=== PATIENT | female | born 1935 | race Caucasian/White ===

== ENCOUNTER 2017-01-21 14:14 | Inpatient (IN) | payer MEDICARE, OTHER ==
--- NOTE | ~2017-01-21 | HP ---
History And Physical [place] [id number] [place]. [address] NAME: STEPHEN RUBALCAVA : 33 STATUS : ADM IN [facility]#: [id number] AGE: 81 ADM/REG DATE : 01/21/17 MR#: [id number] REPORT SERV DATE: 01/21/17 DICTATED BY: MARCELLUS ANDERSON DATE: 01/21/17 REPORT STATUS : Draft TRANSCRIBED BY: AMRGUERITE DATE: 01/21/17 DATE OF ADMISSION: 01/21/2017 CHIEF COMPLAINT: Fever with acute hypoxia. HISTORY OF PRESENT ILLNESS: This is an 81-year-old female with a past medical history of multiple myeloma, status post 3 cycles of chemo, with Revlimid and steroid. She is a patient of Dr. Eloisa Feng. Was seen in clinic yesterday, found to have with severe neutropenia, reported white cell count of 0.4, and a platelet count of 37 yesterday. The patient returned to [facility]cology Clinic and seen by Dr. Edwards with acute hypoxia. The patient was given a dose of Lasix in clinic and found to have a fever of 100.9, and the patient was sent to the emergency department and seen by Dr. Landeros, a ER physician. Upon arrival, the patient was on a non-rebreather and since then has tapered up to 6 L of oxygen. She did require cefepime as well as some Ativan per ER physician. The patient states she has had chills and shortness of breath. No chest pain. No abdominal pain, but has suffered from diarrhea for several days. She has had generalized weakness. According to the family, the patient was noted to be dry yesterday and given some IV fluid in clinic yesterday, but however, with her developing acute onset of shortness of breath in clinic today, she was given a dose of Lasix in clinic. The patient is also on Eliquis for recent DVT diagnosed in November 2016. The patient states that she is compliant with her Eliquis and has not missed the dose and her last dose was this morning. Initially, upon arrival, the patient's blood pressure was 143/59. However, now blood pressure is 82/46. The patient is still responsive and follows commands. Has some mild tachycardia. Family, including son and granddaughter and [id number] are at bedside assisting with the patient's history. According to the family, the patient has had recent recurrent falls due to her generalized weakness. REVIEW OF SYSTEMS: Please refer to HPI. PAST MEDICAL HISTORY: Multiple myeloma, status post 3 cycles of chemo; history of fluid overload; DVT, on Eliquis, diagnosed in November 2016; hypertension; hyperlipidemia; neutropenia/pancytopenia; CKD. PAST SURGICAL HISTORY: Bone marrow biopsy, hip replacement x2, kyphoplasty, knee replacement. FAMILY HISTORY: Hypertension and coronary artery disease. SOCIAL HISTORY: No tobacco, alcohol, or illicit drugs. Lives at home alone. According to the family, the patient has refused to have assistance from family. ALLERGIES: NO KNOWN ALLERGIES. HOME MEDICATIONS: Please refer to Pharmacy. History And Physical [address] [address] NAME: STEPHEN RUBALCAVA : 33 STATUS : ADM IN [facility]#: [id number] AGE: 81 ADM/REG DATE : 01/21/17 MR#: [id number] REPORT SERV DATE: 01/21/17 DICTATED BY: MARCELLUS ANDERSON DATE: 01/21/17 REPORT STATUS : Draft TRANSCRIBED BY: MARGUERITE DATE: 01/21/17 PHYSICAL EXAMINATION: VITAL SIGNS: Temp in the ER 97.3, initial blood pressure was 143/59 and currently at 82/46, pulse 99, respiration initially at 36, now it is around 22 to 26, and O2 saturation 100% on 6 L currently. GENERAL: The patient is alert and oriented, but frail, mild lethargy. HEENT: Pupils equal, round, and reactive to light. Extraocular muscles are intact. Anicteric sclerae. Dry mucous membranes. CARDIOVASCULAR: S1, S2. No rubs or gallops. Positive mild tachycardia. RESPIRATORY: Clear to auscultation bilaterally. No wheezes or crackles. Positive mild tachypnea. ABDOMEN: Positive bowel sounds. Soft, nontender. No rebound. No fluid wave. No distention. Soft. EXTREMITIES: 1+ dorsalis pedis palpable. A trace of pedal edema. SKIN: Abrasion of the right knee from a recent fall and the toes of the right foot. NEUROLOGIC: Cranial nerves II through XII grossly intact. Moves all four extremities. No neuro focal deficits, but with generalized weakness. STUDIES: 1. Chest x-ray: No acute infiltrate. 2. EKG: Poor EKG, but appears to be sinus with no ST elevation. LABS: ABG with a pH of 7.39, pCO2 of 20, PO2 of 22, with FiO2 of 100. Procalcitonin of 4.09 with a sodium of 141, potassium 4.2, chloride 111, bicarb of 16, BUN of 35, with a creatinine of 1.83, glucose of 108. Albumin of 2.2 with a T bilirubin of 1.3, alkaline phosphatase of 127, ALT of 8, calcium of 5.7. BNP of 335. White count of 0.6 with a hemoglobin of 8.8 with a platelet count of 37,000. INR 3.5. UA; specific gravity 1.009, large amount of blood, only 3 red blood cells, 1 white blood cell, no nitrites, and no leukocyte esterase. ASSESSMENT AND PLAN: 1. Neutropenic fever. 2. Acute hypoxia. 3. Hypotension. 4. Multiple myeloma. 5. Underlying sepsis. 6. Recent deep venous thrombosis, on chronic Eliquis. 7. Chronic kidney disease. 8. The patient to be admitted to ICU. I have already spoken to the on-call ICU physician, Dr. Hiram Parada. He is currently evaluating the patient. We will start broad- spectrum antibiotics including cefepime. We will follow up with blood cultures. Also, we will check influenza swab. Also, we will recommend a V/Q scan when the patient's blood pressure is more stable. However, considering the patient is compliant with Eliquis, the likelihood of pulmonary embolism is low at this time, however, Critical Care to make further decisions. Also, we will check an echocardiogram. Also, Hematology Oncology with Dr. Eloisa Feng to be consulted. History And Physical [address] [place]. [address] NAME: STEPHEN RUBALCAVA : 31 STATUS : ADM IN [facility]#: [id number] AGE: 81 ADM/REG DATE : 01/21/17 MR#: [id number] REPORT SERV DATE: 01/21/17 DICTATED BY: MARCELLUS ANDERSON DATE: 01/21/17 REPORT STATUS : Draft TRANSCRIBED BY: MARGUERITE DATE: 01/21/17 [facility]/MARGUERITE Marcellus Anderson M.D. / [id number] CC: MD Eloisa Roa M.D.
--- NOTE | ~2017-01-21 | IDS ---
Interim Discharge Summary [facility] [address] [place]. [address] NAME: STEPHEN RUBALCAVA : 31 STATUS : ADM IN [facility]#: [id number] AGE: 81 ADM/REG DATE : 01/21/17 MR#: [id number] REPORT SERV DATE: 01/26/17 DICTATED BY: SINDI CHERY DATE: 01/26/17 REPORT STATUS : Draft TRANSCRIBED BY: MODL DATE: 01/26/17 ADMISSION DATE: 01/21/2017 DISCHARGE DATE: 01/26/2017 DATE OF ADMISSION TO ICU: 01/21/2017. DATE OF DISCHARGE: 01/26/2017. DISCHARGE DIAGNOSES: 1. Neutropenic fever. 2. Escherichia coli bacteremia. 3. Plasma cell myeloma. 4. Thrombocytopenia. 5. Atrial fibrillation with rapid ventricular response. 6. Acute kidney injury, resolving. 7. Recent deep venous thrombosis, on Eliquis. The patient was in the ICU, was treated with Zosyn and responded, remarkably improved. She had an episode of atrial fibrillation and was treated with amiodarone, switched to . Most recent labs show a sodium of 139, potassium 4.1, chloride 107, CO2 of 22, BUN 19, creatinine 1.2 which is improved, glucose is 62. H and H 8.4 and 24, white count 0.6, platelets 36,000. She is followed by Dr. Feng. We will move her to floor and continue amiodarone. Please see her medication list. She is awake, alert, and oriented. Vital signs are stable. Blood pressure is 116/51, pulse is 76, temperature is 98.3, and saturation is 100%. RP/MODL Sindi Chery M.D. / [id number] CC: Kenney Gordon Clay Alexander
--- NOTE | ~2017-01-21 | HP ---
History And Physical [place] [id number] [facility] [place]. [address] NAME: STEPHEN RUBALCAVA : 31 STATUS : ADM IN [facility]#: [id number] AGE: 81 ADM/REG DATE : 01/21/17 MR#: [id number] REPORT SERV DATE: 01/21/17 DICTATED BY: YANI PARADA DATE: 01/21/17 REPORT STATUS : Draft TRANSCRIBED BY: MODGina DATE: 01/21/17 DATE OF ADMISSION: 01/21/2017 REASON FOR ADMISSION: Neutropenic fever, hypotension. HISTORY OF PRESENT ILLNESS: Ms Rubalcava is an 81-year-old woman with smoldering plasma cell myeloma, on chronic therapy, on Velcade, Revlimid, and dexamethasone. She has been tolerating it fairly well, but was seen in the oncologist's office yesterday. Today, she has been neutropenic and was having more dyspnea and fatigue. She was brought to the emergency department today where she was found to be hypotensive, febrile, and still very neutropenic. She has not been started on aggressive volume resuscitation yet. PAST MEDICAL HISTORY: Significant for the myeloma. She also has had a recent episode of venous thromboembolism and has been on anticoagulation. SOCIAL HISTORY: Significant for no tobacco abuse and no alcohol abuse. REVIEW OF SYSTEMS: Review of 10 systems was performed with the family at the bedside and was positive for what was noted above. FAMILY HISTORY: Noncontributory in this 81-year-old woman. PHYSICAL EXAMINATION: GENERAL: She is awake and alert. VITAL SIGNS: Blood pressure is slightly low. HEENT: Normocephalic and atraumatic. NECK: Supple. No lymphadenopathy. No JVD. CHEST: Symmetric with good expansion bilaterally. LUNGS: Actually clear. CARDIOVASCULAR: She has S1 and S2, which are regular rate and rhythm. ABDOMEN: Benign. EXTREMITIES: She has no edema, no clubbing, no cyanosis. SKIN: She has some skin tenting and decreased turgor consistent with her dehydration. ASSESSMENT AND PLAN: Neutropenic fever. She has an absolute neutrophil count of 180. We have started her on broad-spectrum antibiotics and aggressive volume resuscitation. Unfortunately, she is at increased risk for morbidity and mortality because of the combination of her chronic hematologic malignancy, neutropenia, and her age. I have discussed advanced wishes with the family and they state very clearly they want her to be resuscitated if needed and put her on a ventilator if she has increased work of breathing. Her lactate is not elevated and her renal function is mildly elevated consistent with her dehydration with an elevated procalcitonin of 4.09. She will be admitted to the intensive care unit and monitored. We have discussed care with the emergency department staff and with the patient and her family. History And Physical [address] [address] NAME: STEPHEN RUBALCAVA : 31 STATUS : ADM IN PAT#: [id number] AGE: 81 ADM/REG DATE : 01/21/17 MR#: [id number] REPORT SERV DATE: 01/21/17 DICTATED BY: YANI PARADA DATE: 01/21/17 REPORT STATUS : Draft TRANSCRIBED BY: MARGUERITE DATE: 01/21/17 [facility]/MARGUERITE Yani Parada M.D. / [id number] CC: Jame Johnston MD
--- NOTE | ~2017-01-21 | DS ---
Discharge Summary [facility] [address] [place]. [address] NAME: STEPHEN RUBALCAVA : 31 STATUS : ADM IN PAT#: [id number] AGE: 81 ADM/REG DATE : 01/21/17 MR#: [id number] REPORT SERV DATE: 01/28/17 DICTATED BY: Surendra JUAREZ DATE: 01/28/17 REPORT STATUS : Draft TRANSCRIBED BY: MODL DATE: 01/28/17 ADMISSION DATE: 01/21/2017 DISCHARGE DATE: 01/28/2017 DIAGNOSES AT DISCHARGE: 1. Sepsis, present on admission, resolved. 2. Escherichia coli bacteremia, resolving. 3. Pancytopenia, resolving. 4. Multiple myeloma. 5. Atrial fibrillation with rapid ventricular rate, rate controlled. 6. Acute kidney injury, resolving. ACTIVE CONSULTS: [facility]. PROCEDURES: None. For details regarding earlier hospital stay, please see interim summary dictated by Dr. Vanegas on critical care dated 01/26/2017. HOSPITAL COURSE: Continuing on with hospital course 01/27/2017, the patient made remarkable recovery. Her pancytopenia is improving. Her kidney injury is resolving. She has remained afebrile. She has been transferred to [address] [place] [address] and been mobilized with physical therapy. The patient's physical therapy evaluation suggested a need for short-term rehabilitation at the halfway facility level. Her antibiotic had been downgraded to Duricef 1000 mg b.i.d., which she will complete ten total days of antimicrobial therapy. The patient was felt stable to transitioned to halfway on 01/28/2017. She has an outpatient followup with [facility] in one week. We will continue to hold Eliquis with plans to restart in one week at the date of 02/04/2017. She will complete her antimicrobial therapy after 01/30/2017. The patient will continue her other medications per med reconciliation form including oral amiodarone, which she will continue to our outpatient followup with Cardiology. Further recommendations for ongoing treatment pending outpatient followup with her primary care provider, [facility], and [facility]. As mentioned, she will be transitioned to halfway facility for ongoing rehabilitation. Of note, greater than 30 minutes was required to review medical record, reconcile discharge medications, counseling the patient regarding her antibiotic use and restarting date for her Eliquis. [facility]/MARGUERITE Surendra Juarez M.D. / [id number] Discharge Summary [address] [place]. [address] NAME: STEPHEN RUBALCAVA : 31 STATUS : ADM IN PAT#: [id number] AGE: 81 ADM/REG DATE : 01/21/17 MR#: [id number] REPORT SERV DATE: 01/28/17 DICTATED BY: Surendra JUAREZ DATE: 01/28/17 REPORT STATUS : Draft TRANSCRIBED BY: MARGUERITE DATE: 01/28/17 CC: Sj Vanegas M.D.
[2017-01-21 12:51] LABS: ALLENS TEST Pos; BE (BASE EXCESS) -11.5 MEQ/L (0 +/- 2.5); CARBOXYHEMOGLOBIN 1.4 % (0-3); HCO3 (ACTUAL BICARBONATE) 11.8 MEQ/L (23-27); HEMOBLOGIN CONTENT 9.4 G/DL (12-16); INSTRUMENT SERIAL # 8087; O2 CONTENT 13.6 VOL% (18-24); OPERATOR ID 14335; PCO2 (CO2 TENSION) 20 MMHG (35-45); PO2 (O2 TENSION) 226 MMHG (79-93); SAMPLE Arterial; pH 7.39 (7.37-7.43)
[2017-01-21 13:43] LABS: BASOPHILS 3.6 %; BASOPHILS ABSOLUTE 0.02 10/3/uL (0.0-0.16); EOSINOPHILS 39.3 %; EOSINOPHILS ABSOLUTE 0.22 10/3/uL (0.0-0.53); HEMOGLOBIN 8.8 g/dL (12.0-16.0); IMMATURE GRANULOCYTES 5.4 %; LYMPHOCYTES 19.6 %; LYMPHOCYTES ABSOLUTE 0.11 10/3/uL (0.67-4.30); MEAN CORPUS HGB CONC 34.1 g/dL (32.0-36.0); MEAN CORPUSCULAR HEMOGLOB 34.2 pg (26.0-34.0); MEAN CORPUSCULAR VOLUME 100.4 fL (80-100); MEAN PLATELET VOLUME 12.8 fL (9.2-13.0); MONOCYTES 0 %; NEUTROPHILS 32.1 %; NEUTROPHILS ABSOLUTE 0.18 10/3/uL (2.02-8.40); RBC DISTRIBUTION WIDTH 17.6 % (12.0-16.0); RED CELL COUNT 2.57 10/6/uL (4.0-5.6)
[2017-01-21 13:45] LABS: ER CBC TAT 0 Hrs 08 Mins; HEMATOCRIT 25.8 % (36.0-48.0); IMMATURE GRANULOCYTES ABSOLUTE 0.03 10/3/uL (0.0-0.11); MANUAL DIFF NO %; PLATELET COUNT 37 10/3/uL (150-400); WHITE BLOOD CELLS 0.6 10/3/uL (4.5-10.5)
[2017-01-21 13:52] LABS: INTERNATIONAL NORMAL RATI 3.5 UNITS (-); PARTIAL THROMBO TIME 43.9 SEC (22.5-37.2); PROTIME (NOT ORD) 35.2 SEC (12.0-14.5)
[2017-01-21 13:54] LABS: D-DIMER QUANTITATIVE 0.68 ug/mLFEU (< 0.50)
[2017-01-21 14:02] LABS: ANISOCYTOSIS 1+ (5-10/OIF) (0-5/OIF); BASOPHILS 3 %; BASOPHILS ABSOLUTE (CALC) 0.02 10/3/uL (0.0-0.16); CHLORIDE, SERUM 111 MMOL/L (96-112); CREATININE 1.83 MG/DL (0.55-1.02); EOSINOPHILS 40 %; EOSINOPHILS ABSOLUTE (CALC) 0.24 10/3/uL (0.0-0.53); ER DIFF TAT 0 Hrs 25 Mins; GFR AFRICAN AMERICAN 29 ML/MIN (>=60); GFR NON AFRICAN AMERICAN 25 ML/MIN (>=60); GLUCOSE, SERUM 108 MG/DL (60-99); LYMPHOCYTES 21 %; LYMPHOCYTES ABSOLUTE (CALC) 0.13 10/3/uL (0.67-4.30); MACROCYTES 1+ (5-10/OIF) (0-5/OIF); NEUTROPHILS ABSOLUTE (CALC) 0.22 10/3/uL (2.02-8.40); POTASSIUM, SERUM 4.2 MMOL/L (3.5-5.3); SEGMENTED NEUTROPHIL (0) 36 %; SGOT(AST) 11 U/L (5-40); SGPT(ALT) 8 U/L (5-65); SODIUM, SERUM 141 MMOL/L (135-148); TOTAL NUCLEATED CELLS 100
[2017-01-21 14:03] LABS: A/G RATIO 0.6 (0.7-1.9); ALBUMIN 2.2 G/DL (3.5-5.0); ALKALINE PHOSPHATASE 127 U/L (45-117); BUN (BLOOD UREA NITROGEN) 35 MG/DL (6-23); CALCIUM, SERUM 5.7 MG/DL (8.5-10.4); CO2 (CARBON DIOXIDE) 16 MMOL/L (24-34); GLOBULIN 3.6 G/DL (2.5-4.1); TOTAL BILIRUBIN 1.3 MG/DL (0-1.2); TOTAL PROTEIN 5.8 G/DL (6.0-8.5)
[~2017-01-21 14:14] MED LIST: COUMADIN4 MG; DSS PO; FESO4 PO; HYT2 PO; I10 PO; MEVACOR PO; MOTRIN IB200 MG PO; MULTIVITAMI1 PO; PCET PO; VESICARE5 PO
[2017-01-21 14:19] LABS: ASCORBIC ACID (UR NOT ORDER) NEG (NEG); BILIRUBIN, URINE NEGATIVE (NEG); ER URINALYSIS TAT 0 Hrs 13 Mins; KETONE, URINE NEGATIVE (NEG); LEUKOCYTE ESTERASE(NOT OR NEG (NEG); NITRITE (URINE) NEG (NEG); WBC (NOT ORDERED) (RFLEX) 1 (0-5)
[2017-01-21 15:01] LABS: PROCALCITONIN 4.09 ng/mL (<0.5)
[2017-01-21 15:46] LABS: INFLUENZA A SCREEN NEGATIVE (NEGATIVE); INFLUENZA B SCREEN NEGATIVE (NEGATIVE)
[2017-01-21] MEDS ORDERED: I10 PO (15:55)
[2017-01-21] MEDS ORDERED: ZOVIRAX400 MG PO (15:55)
[2017-01-21] MEDS ORDERED: DSS PO (15:55)
[2017-01-21] MEDS ORDERED: ELIQUIS 5 MG TAB5 MG PO (15:56)
[2017-01-21] MEDS ORDERED: MEVACOR PO (15:56)
[2017-01-21] MEDS ORDERED: [UNRECOGNIZED DRUG - OTHER] MT (15:57)
[2017-01-21] MEDS ORDERED: MELATONIN5 M1 PO (15:57)
[2017-01-21] MEDS ORDERED: DETROL2 PO (15:58)
[2017-01-21] MEDS ORDERED: ACET500CAP PO (15:58)
[2017-01-21] MEDS ORDERED: ATV.5 PO (15:58)
[2017-01-21 21:02] LABS: FREE T4 1.96 NG/DL (0.76-1.46); ULTRASENSITIVE TSH 0.693 MCIU/ML (0.358-3.740)
[2017-01-22 04:26] LABS: A/G RATIO 0.7 (0.7-1.9); ALBUMIN 1.9 G/DL (3.5-5.0); BUN (BLOOD UREA NITROGEN) 32 MG/DL (6-23); CHLORIDE, SERUM 111 MMOL/L (96-112); CO2 (CARBON DIOXIDE) 17 MMOL/L (24-34); CREATININE 1.48 MG/DL (0.55-1.02); GFR AFRICAN AMERICAN 38 ML/MIN (>=60); GFR NON AFRICAN AMERICAN 32 ML/MIN (>=60); GLOBULIN 2.9 G/DL (2.5-4.1); GLUCOSE, SERUM 116 MG/DL (60-99); PHOSPHORUS, SERUM 3.6 MG/DL (2.5-4.5); POTASSIUM, SERUM 4.2 MMOL/L (3.5-5.3); SGOT(AST) 10 U/L (5-40); SGPT(ALT) 7 U/L (5-65); SODIUM, SERUM 141 MMOL/L (135-148); TOTAL PROTEIN 4.8 G/DL (6.0-8.5)
[2017-01-22 04:33] LABS: ALKALINE PHOSPHATASE 84 U/L (45-117); TOTAL BILIRUBIN 0.5 MG/DL (0-1.2)
[2017-01-22 05:35] LABS: RBC DISTRIBUTION WIDTH 17.4 % (12.0-16.0); WHITE BLOOD CELLS 0.2 10/3/uL (4.5-10.5)
[2017-01-22 05:36] LABS: HEMATOCRIT 18.5 % (36.0-48.0); HEMOGLOBIN 6.1 g/dL (12.0-16.0); PLATELET COUNT 19 10/3/uL (150-400); RED CELL COUNT 1.85 10/6/uL (4.0-5.6)
[2017-01-22 05:37] LABS: MANUAL DIFF YES %
[2017-01-22 06:45] LABS: PROCALCITONIN 5.05 ng/mL (<0.5)
[2017-01-22 07:27] LABS: ANISOCYTOSIS 1+ (5-10/OIF) (0-5/OIF); BAND NEUTROPHILS 5 %; BASOPHILS 1 %; ELLIPTOCYTES 1+ (3-10/OIF) (0-2/OIF); EOSINOPHILS 32 %; EOSINOPHILS ABSOLUTE (CALC) 0.06 10/3/uL (0.0-0.53); LYMPHOCYTES 21 %; LYMPHOCYTES ABSOLUTE (CALC) 0.04 10/3/uL (0.67-4.30); MACROCYTES 1+ (5-10/OIF) (0-5/OIF); MONOCYTES 3 %; MONOCYTES ABSOLUTE (CALC) 0.01 10/3/uL (0.21-1.20); NEUTROPHILS ABSOLUTE (CALC) 0.09 10/3/uL (2.02-8.40); POLYCHROMASIA 1+ (2-5/OIF) (0-1/OIF); SEGMENTED NEUTROPHIL (0) 38 %; TEARDROP SHAPED RBCS OCC (0-2/OIF); TOTAL NUCLEATED CELLS 100
[2017-01-22 07:28] LABS: HELMET CELLS OCC (0-2/OIF); TOXIC GRANULATION SLT
[2017-01-22 18:53] LABS: BASOPHILS 0 %; EOSINOPHILS 32.1 %; EOSINOPHILS ABSOLUTE 0.09 10/3/uL (0.0-0.53); IMMATURE GRANULOCYTES 3.6 %; IMMATURE GRANULOCYTES ABSOLUTE 0.01 10/3/uL (0.0-0.11); LYMPHOCYTES 17.9 %; LYMPHOCYTES ABSOLUTE 0.05 10/3/uL (0.67-4.30); MEAN CORPUS HGB CONC 34.2 g/dL (32.0-36.0); MEAN CORPUSCULAR HEMOGLOB 33.3 pg (26.0-34.0); MEAN CORPUSCULAR VOLUME 97.4 fL (80-100); MEAN PLATELET VOLUME 10.3 fL (9.2-13.0); MONOCYTES 7.1 %; MONOCYTES ABSOLUTE 0.02 10/3/uL (0.21-1.20); NEUTROPHILS 39.3 %; NEUTROPHILS ABSOLUTE 0.11 10/3/uL (2.02-8.40); RBC DISTRIBUTION WIDTH 18.5 % (12.0-16.0)
[2017-01-22 18:54] LABS: HEMATOCRIT 22.5 % (36.0-48.0); HEMOGLOBIN 7.7 g/dL (12.0-16.0); PLATELET COUNT 48 10/3/uL (150-400); RED CELL COUNT 2.31 10/6/uL (4.0-5.6); WHITE BLOOD CELLS 0.3 10/3/uL (4.5-10.5)
[2017-01-22 18:57] LABS: MANUAL DIFF NO %
[2017-01-22 19:36] LABS: ANISOCYTOSIS 1+ (5-10/OIF) (0-5/OIF); BAND NEUTROPHILS 12 %; EOSINOPHILS 11 %; EOSINOPHILS ABSOLUTE (CALC) 0.03 10/3/uL (0.0-0.53); LYMPHOCYTES 5 %; LYMPHOCYTES ABSOLUTE (CALC) 0.02 10/3/uL (0.67-4.30); MONOCYTES 6 %; MONOCYTES ABSOLUTE (CALC) 0.02 10/3/uL (0.21-1.20); NEUTROPHILS ABSOLUTE (CALC) 0.23 10/3/uL (2.02-8.40); SEGMENTED NEUTROPHIL (0) 66 %; TOTAL NUCLEATED CELLS 100
[2017-01-23 00:45] LABS: HEMATOCRIT 21.5 % (36.0-48.0); HEMOGLOBIN 7.3 g/dL (12.0-16.0); MEAN CORPUSCULAR VOLUME 97.3 fL (80-100); MEAN PLATELET VOLUME 10.6 fL (9.2-13.0); RBC DISTRIBUTION WIDTH 18.7 % (12.0-16.0); RED CELL COUNT 2.21 10/6/uL (4.0-5.6); WHITE BLOOD CELLS 0.3 10/3/uL (4.5-10.5)
[2017-01-23 00:46] LABS: MANUAL DIFF YES %; PLATELET COUNT 35 10/3/uL (150-400)
[2017-01-23 00:58] LABS: BUN (BLOOD UREA NITROGEN) 33 MG/DL (6-23); CHLORIDE, SERUM 111 MMOL/L (96-112); CO2 (CARBON DIOXIDE) 17 MMOL/L (24-34); CREATININE 1.45 MG/DL (0.55-1.02); GFR AFRICAN AMERICAN 39 ML/MIN (>=60); GFR NON AFRICAN AMERICAN 33 ML/MIN (>=60); GLUCOSE, SERUM 123 MG/DL (60-99); POTASSIUM, SERUM 3.9 MMOL/L (3.5-5.3); SODIUM, SERUM 141 MMOL/L (135-148)
[2017-01-23 01:01] LABS: CALCIUM, SERUM 6.2 MG/DL (8.5-10.4); PHOSPHORUS, SERUM 2.6 MG/DL (2.5-4.5)
[2017-01-23 01:31] LABS: ANISOCYTOSIS 1+ (5-10/OIF) (0-5/OIF); EOSINOPHILS 28 %; EOSINOPHILS ABSOLUTE (CALC) 0.08 10/3/uL (0.0-0.53); LYMPHOCYTES 30 %; LYMPHOCYTES ABSOLUTE (CALC) 0.09 10/3/uL (0.67-4.30); NEUTROPHILS ABSOLUTE (CALC) 0.13 10/3/uL (2.02-8.40); SEGMENTED NEUTROPHIL (0) 42 %; TOTAL NUCLEATED CELLS 50
[2017-01-23 01:32] LABS: ELLIPTOCYTES 1+ (3-10/OIF) (0-2/OIF)
[2017-01-23 01:34] LABS: PROCALCITONIN 3.79 ng/mL (<0.5)
[2017-01-24 04:55] LABS: HEMOGLOBIN 8.3 g/dL (12.0-16.0); MEAN CORPUSCULAR HEMOGLOB 33.1 pg (26.0-34.0); MEAN CORPUSCULAR VOLUME 97.2 fL (80-100); MEAN PLATELET VOLUME 10.5 fL (9.2-13.0); RBC DISTRIBUTION WIDTH 18.8 % (12.0-16.0); RED CELL COUNT 2.51 10/6/uL (4.0-5.6)
[2017-01-24 04:57] LABS: HEMATOCRIT 24.4 % (36.0-48.0); PLATELET COUNT 25 10/3/uL (150-400); WHITE BLOOD CELLS 0.5 10/3/uL (4.5-10.5)
[2017-01-24 04:58] LABS: MANUAL DIFF YES %
[2017-01-24 05:01] LABS: ALBUMIN 1.7 G/DL (3.5-5.0); CHLORIDE, SERUM 112 MMOL/L (96-112); CO2 (CARBON DIOXIDE) 20 MMOL/L (24-34); CREATININE 1.31 MG/DL (0.55-1.02); GFR AFRICAN AMERICAN 44 ML/MIN (>=60); GFR NON AFRICAN AMERICAN 38 ML/MIN (>=60); PHOSPHORUS, SERUM 2.1 MG/DL (2.5-4.5); POTASSIUM, SERUM 4.2 MMOL/L (3.5-5.3); SODIUM, SERUM 142 MMOL/L (135-148)
[2017-01-24 05:04] LABS: BUN (BLOOD UREA NITROGEN) 23 MG/DL (6-23); CALCIUM, SERUM 6.5 MG/DL (8.5-10.4); GLUCOSE, SERUM 86 MG/DL (60-99)
[2017-01-24 06:30] LABS: ANISOCYTOSIS 1+ (5-10/OIF) (0-5/OIF); EOSINOPHILS 45 %; EOSINOPHILS ABSOLUTE (CALC) 0.23 10/3/uL (0.0-0.53); LYMPHOCYTES 30 %; LYMPHOCYTES ABSOLUTE (CALC) 0.15 10/3/uL (0.67-4.30); MONOCYTES 5 %; MONOCYTES ABSOLUTE (CALC) 0.03 10/3/uL (0.21-1.20); PLATELET ESTIMATE DEC (ADEQUATE); SEGMENTED NEUTROPHIL (0) 20 %; TOTAL NUCLEATED CELLS 100
[2017-01-24 16:28] LABS: BUN (BLOOD UREA NITROGEN) 21 MG/DL (6-23); CHLORIDE, SERUM 110 MMOL/L (96-112); CO2 (CARBON DIOXIDE) 21 MMOL/L (24-34); CREATININE 1.34 MG/DL (0.55-1.02); GFR AFRICAN AMERICAN 42 ML/MIN (>=60); GFR NON AFRICAN AMERICAN 37 ML/MIN (>=60); GLUCOSE, SERUM 103 MG/DL (60-99); POTASSIUM, SERUM 3.5 MMOL/L (3.5-5.3); SODIUM, SERUM 142 MMOL/L (135-148)
[2017-01-24 16:29] LABS: CALCIUM, SERUM 6.8 MG/DL (8.5-10.4)
[2017-01-25 05:11] LABS: HEMATOCRIT 24.8 % (36.0-48.0); HEMOGLOBIN 8.5 g/dL (12.0-16.0); MEAN CORPUS HGB CONC 34.3 g/dL (32.0-36.0); MEAN CORPUSCULAR HEMOGLOB 33.1 pg (26.0-34.0); MEAN CORPUSCULAR VOLUME 96.5 fL (80-100); MEAN PLATELET VOLUME 11.4 fL (9.2-13.0); RBC DISTRIBUTION WIDTH 17.9 % (12.0-16.0); RED CELL COUNT 2.57 10/6/uL (4.0-5.6)
[2017-01-25 05:12] LABS: MANUAL DIFF YES %; PLATELET COUNT 25 10/3/uL (150-400); WHITE BLOOD CELLS 0.5 10/3/uL (4.5-10.5)
[2017-01-25 05:25] LABS: BUN (BLOOD UREA NITROGEN) 20 MG/DL (6-23); CHLORIDE, SERUM 108 MMOL/L (96-112); CO2 (CARBON DIOXIDE) 21 MMOL/L (24-34); CREATININE 1.32 MG/DL (0.55-1.02); GFR AFRICAN AMERICAN 43 ML/MIN (>=60); GFR NON AFRICAN AMERICAN 37 ML/MIN (>=60); GLUCOSE, SERUM 107 MG/DL (60-99); PHOSPHORUS, SERUM 2.1 MG/DL (2.5-4.5); POTASSIUM, SERUM 4.1 MMOL/L (3.5-5.3); SODIUM, SERUM 139 MMOL/L (135-148)
[2017-01-25 05:28] LABS: CALCIUM, SERUM 6.3 MG/DL (8.5-10.4)
[2017-01-25 05:44] LABS: ANISOCYTOSIS 1+ (5-10/OIF) (0-5/OIF); EOSINOPHILS 42 %; EOSINOPHILS ABSOLUTE (CALC) 0.21 10/3/uL (0.0-0.53); LYMPHOCYTES 27 %; LYMPHOCYTES ABSOLUTE (CALC) 0.14 10/3/uL (0.67-4.30); MACROCYTES 1+ (5-10/OIF) (0-5/OIF); MONOCYTES 4 %; MONOCYTES ABSOLUTE (CALC) 0.02 10/3/uL (0.21-1.20); NEUTROPHILS ABSOLUTE (CALC) 0.14 10/3/uL (2.02-8.40); SEGMENTED NEUTROPHIL (0) 27 %; TOTAL NUCLEATED CELLS 100
[2017-01-25 05:45] LABS: HYPOCHROMIA 1+ (3-10/OIF) (0-2/OIF)
[2017-01-26 05:03] LABS: HEMATOCRIT 24.7 % (36.0-48.0); HEMOGLOBIN 8.4 g/dL (12.0-16.0); MEAN CORPUSCULAR HEMOGLOB 33.6 pg (26.0-34.0); MEAN CORPUSCULAR VOLUME 98.8 fL (80-100); RBC DISTRIBUTION WIDTH 17.5 % (12.0-16.0)
[2017-01-26 05:11] LABS: PLATELET COUNT 36 10/3/uL (150-400); WHITE BLOOD CELLS 0.6 10/3/uL (4.5-10.5)
[2017-01-26 05:12] LABS: BUN (BLOOD UREA NITROGEN) 19 MG/DL (6-23); CHLORIDE, SERUM 107 MMOL/L (96-112); CO2 (CARBON DIOXIDE) 22 MMOL/L (24-34); CREATININE 1.28 MG/DL (0.55-1.02); GFR AFRICAN AMERICAN 45 ML/MIN (>=60); GFR NON AFRICAN AMERICAN 39 ML/MIN (>=60); MANUAL DIFF YES %; POTASSIUM, SERUM 4.1 MMOL/L (3.5-5.3); SODIUM, SERUM 139 MMOL/L (135-148)
[2017-01-26 05:13] LABS: CALCIUM, SERUM 6.6 MG/DL (8.5-10.4); GLUCOSE, SERUM 62 MG/DL (60-99); PHOSPHORUS, SERUM 2.9 MG/DL (2.5-4.5)
[2017-01-26 05:32] LABS: EOSINOPHILS 30 %; EOSINOPHILS ABSOLUTE (CALC) 0.18 10/3/uL (0.0-0.53); LYMPHOCYTES 20 %; LYMPHOCYTES ABSOLUTE (CALC) 0.12 10/3/uL (0.67-4.30); SEGMENTED NEUTROPHIL (0) 50 %; TOTAL NUCLEATED CELLS 10
[2017-01-26 05:33] LABS: PLATELET ESTIMATE DEC (ADEQUATE); RBC MORPHOLOGY ABN (NORMAL)
[2017-01-27 04:30] LABS: HEMATOCRIT 23.4 % (36.0-48.0); MEAN CORPUS HGB CONC 34.2 g/dL (32.0-36.0); MEAN CORPUSCULAR HEMOGLOB 33.5 pg (26.0-34.0); MEAN CORPUSCULAR VOLUME 97.9 fL (80-100); MEAN PLATELET VOLUME 11.3 fL (9.2-13.0); RBC DISTRIBUTION WIDTH 16.8 % (12.0-16.0); RED CELL COUNT 2.39 10/6/uL (4.0-5.6)
[2017-01-27 04:40] LABS: PLATELET COUNT 30 10/3/uL (150-400); WHITE BLOOD CELLS 0.9 10/3/uL (4.5-10.5)
[2017-01-27 04:41] LABS: MANUAL DIFF YES %
[2017-01-27 04:51] LABS: BUN (BLOOD UREA NITROGEN) 16 MG/DL (6-23); CALCIUM, SERUM 7.4 MG/DL (8.5-10.4); CHLORIDE, SERUM 111 MMOL/L (96-112); CO2 (CARBON DIOXIDE) 21 MMOL/L (24-34); GFR AFRICAN AMERICAN 48 ML/MIN (>=60); GFR NON AFRICAN AMERICAN 42 ML/MIN (>=60); PHOSPHORUS, SERUM 2.4 MG/DL (2.5-4.5); POTASSIUM, SERUM 4.7 MMOL/L (3.5-5.3); SODIUM, SERUM 140 MMOL/L (135-148)
[2017-01-27 04:54] LABS: GLUCOSE, SERUM 75 MG/DL (60-99)
[2017-01-27 05:40] LABS: BASOPHILS 1 %; BASOPHILS ABSOLUTE (CALC) 0.01 10/3/uL (0.0-0.16); EOSINOPHILS 34 %; EOSINOPHILS ABSOLUTE (CALC) 0.31 10/3/uL (0.0-0.53); LYMPHOCYTES 20 %; LYMPHOCYTES ABSOLUTE (CALC) 0.18 10/3/uL (0.67-4.30); MONOCYTES 4 %; MONOCYTES ABSOLUTE (CALC) 0.04 10/3/uL (0.21-1.20); NEUTROPHILS ABSOLUTE (CALC) 0.37 10/3/uL (2.02-8.40); SEGMENTED NEUTROPHIL (0) 41 %; TOTAL NUCLEATED CELLS 100
[2017-01-27 05:41] LABS: RBC MORPHOLOGY NORM (NORMAL)
[2017-01-28 07:28] LABS: BASOPHILS 0.5 %; BASOPHILS ABSOLUTE 0.01 10/3/uL (0.0-0.16); EOSINOPHILS 17.3 %; EOSINOPHILS ABSOLUTE 0.35 10/3/uL (0.0-0.53); HEMATOCRIT 23.3 % (36.0-48.0); HEMOGLOBIN 7.6 g/dL (12.0-16.0); IMMATURE GRANULOCYTES 0.5 %; IMMATURE GRANULOCYTES ABSOLUTE 0.01 10/3/uL (0.0-0.11); LYMPHOCYTES 12.9 %; LYMPHOCYTES ABSOLUTE 0.26 10/3/uL (0.67-4.30); MEAN CORPUS HGB CONC 32.6 g/dL (32.0-36.0); MEAN CORPUSCULAR HEMOGLOB 31.8 pg (26.0-34.0); MEAN CORPUSCULAR VOLUME 97.5 fL (80-100); MEAN PLATELET VOLUME 10.8 fL (9.2-13.0); MONOCYTES ABSOLUTE 0.06 10/3/uL (0.21-1.20); NEUTROPHILS 65.8 %; NEUTROPHILS ABSOLUTE 1.33 10/3/uL (2.02-8.40); RBC DISTRIBUTION WIDTH 16.4 % (12.0-16.0); RED CELL COUNT 2.39 10/6/uL (4.0-5.6)
[2017-01-28 07:30] LABS: MANUAL DIFF NO %; PLATELET COUNT 43 10/3/uL (150-400)
[2017-01-28 07:40] LABS: BUN (BLOOD UREA NITROGEN) 13 MG/DL (6-23); CALCIUM, SERUM 7.7 MG/DL (8.5-10.4); CHLORIDE, SERUM 112 MMOL/L (96-112); CO2 (CARBON DIOXIDE) 18 MMOL/L (24-34); CREATININE 1.07 MG/DL (0.55-1.02); GFR AFRICAN AMERICAN 56 ML/MIN (>=60); GFR NON AFRICAN AMERICAN 48 ML/MIN (>=60); GLUCOSE, SERUM 96 MG/DL (60-99); POTASSIUM, SERUM 4.8 MMOL/L (3.5-5.3); SODIUM, SERUM 141 MMOL/L (135-148)
[2017-01-28 08:06] LABS: ANISOCYTOSIS 1+ (5-10/OIF) (0-5/OIF)
[2017-04-14] MEDS ORDERED: ATV.5 PO (00:02)
[2017-04-14] MEDS ORDERED: DEX4 PO (00:03)
[2017-04-14] MEDS ORDERED: KDUR20 PO (00:04)
[2017-04-14] MEDS ORDERED: LOP25 PO (00:04)
[2017-04-14] MEDS ORDERED: ZOVIRAX400 MG PO (00:04)
[2017-04-14] MEDS ORDERED: L20 PO (00:04)
[2017-04-14] MEDS ORDERED: DETROLLA2 PO (00:05)
[2017-04-14] MEDS ORDERED: ELIQUIS 5 MG TAB5 MG PO (00:05)
[2017-04-14] MEDS ORDERED: MELATONIN10 M2 PO (00:06)
[2017-04-14] MEDS ORDERED: DOK250 MG PO (00:06)
[2017-04-14] MEDS ORDERED: REVLIMID15 MG PO (00:07)
[2017-04-14] MEDS ORDERED: ZOMETA4 MG/5 ML IV (00:07)
[2017-04-14] MEDS ORDERED: VELCADE IV/IM/SC (00:09)
[2017-04-14] MEDS ORDERED: MEVACOR PO (00:53)
[2017-04-18] MEDS ORDERED: STERAPRED DS10 MG (13:33)
[2017-04-18] MEDS ORDERED: LEVAQUIN750 MG PO (13:33)
== END 2017-01-28 13:51 | DRG 872 ==
LOC: ER 14:14 → ER/OF 15:21 → CCU 16:29 → 2SO 01-26 19:36
PROVIDERS: Emergency Medicine; Internal Medicine; Internal Medicine Critical Care Medicine; Internal Medicine Pulmonary Disease
PROC: 02HV33Z Insertion of Infusion Device into Superior Vena Cava, Percutaneous Approach (ICD-10-PCS; principal; 2017-01-21)
PROC: 4A02X4A Measurement of Cardiac Electrical Activity, Guidance, External Approach (ICD-10-PCS; 2017-01-21)
PROC: 30233N1 Transfusion of Nonautologous Red Blood Cells into Peripheral Vein, Percutaneous Approach (ICD-10-PCS; 2017-01-21)
DX: A41.51 Sepsis due to Escherichia coli [E. coli] (principal); N17.9 Acute kidney failure, unspecified; D70.1 Agranulocytosis secondary to cancer chemotherapy; C90.00 Multiple myeloma not having achieved remission; D69.6 Thrombocytopenia, unspecified; I48.91 Unspecified atrial fibrillation; E86.0 Dehydration; E78.5 Hyperlipidemia, unspecified; I12.9 Hypertensive chronic kidney disease with stage 1 through stage 4 chronic kidney disease, or unspecified chronic kidney disease; N18.9 Chronic kidney disease, unspecified; R50.81 Fever presenting with conditions classified elsewhere; R09.02 Hypoxemia; Z96.649 Presence of unspecified artificial hip joint; Z91.81 History of falling; Z86.718 Personal history of other venous thrombosis and embolism
CPT/HCPCS: 36415; 36569; 36600; 71010; 80048; 80053; 80069; 80202; 81001; 82330; 82805; 83605; 83735; 83880; 84100; 84145; 84439; 84443; 85025; 85379; 85610; 85730; 86850; 86900; 86901; 86920; 87040; 87077; 87150; 87186; 87449; 87493; 87493-59; 87641; 87804; 93005; 93306; 94640; 96374; 96375; 97161-GP; 99291; A9270-GY; C1751; G8978-CK-GP; G8979-CI-GP; J0282; J0610; J0692; J1447; J1580; J1940; J2543; J2930; J3370; P9016; P9035; P9045; P9047